=== PATIENT | female | born 1970 | race Caucasian/White ===

== ENCOUNTER 2020-01-09 11:42 | Inpatient (IN) | payer MEDICAID ==
[~2020-01-09] VITALS: Ht 154.9 cm; Wt 93.0 kg
[2020-01-09 12:00] VITALS: BP 115/65
--- NOTE | 2020-01-09 12:20 | NUR ---
C/O SUDDEN ONSET L SIDED CHEST PAIN/SOB STARTING TODAY AFTER BENDING OVER TO HELP A CLIENT PUT THEIR SHOE ON. PT STATES THE PAIN IS NON RADIATING, 6/10 & "TIGHT". DENIES N/V. PT IS A&OX4, ANSWERING QUESTIONS APPROPRIATELY. NO LABORED BREATHING/ACCESORY MUSCLE USE NOTED. 02 SAT RA 98%, LUNG SOUNDS CAEBL. SKIN WARM/DRY. BED IN LOW POSITION, SIDE RAIL UP X1. AT BEDSIDE.
--- NOTE | 2020-01-09 13:10 | NUR ---
ERMD AT BEDSIDE
[2020-01-09] MEDS ORDERED: NITROGLYCERIN 0.4 MG TAB SL ONE (13:25)
[2020-01-09] MEDS ORDERED: ASPIRIN 81 MG TAB.CHEW PO ONE (13:25)
[2020-01-09 13:49] LABS: BASOPHILS % (AUTO) 0.7 % (0.0-2.0); EOSINOPHILS # (AUTO) 0.1 K/uL (0-0.4); EOSINOPHILS % (AUTO) 1.4 % (0.0-4.0); HEMATOCRIT 41.9 % (36-48); HEMOGLOBIN 13.9 g/dL (12.0-16.0); LYMPHOCYTES % (AUTO) 32.3 % (20.5-51.1); MEAN CORPUSCULAR HEMOGLOBIN 31 pg (27-31); MEAN CORPUSCULAR HGB CONC 33 g/dL (33-37); MEAN CORPUSCULAR VOLUME 93.2 fL (80-94); MONOCYTES # (AUTO) 0.5 K/uL (0.8-1.0); MONOCYTES % (AUTO) 8.8 % (1.7-9.3); NEUTROPHILS # (AUTO) 3.6 K/uL (1.8-7.7); NEUTROPHILS % (AUTO) 56.8 % (42.2-75.2); PLATELET COUNT (AUTO) 253 K/uL (140-450); RED BLOOD CELL COUNT(AUTO) 4.49 MIL/uL (4.20-5.40); RED CELL DISTRIBUTION WIDTH 12.7 % (11.6-13.7); WHITE BLOOD COUNT (AUTO) 6.3 K/uL (4.8-10.8)
[2020-01-09 14:03] LABS: ALBUMIN 3.8 g/dL (3.4-5.0); ANION GAP 10.7 (8-16); CARBON DIOXIDE 29.2 mmol/L (21-32); CREATININE 0.8 mg/dL (0.6-1.3); POTASSIUM 3.9 mmol/L (3.5-5.1); TOTAL BILIRUBIN 0.7 mg/dL (0.0-1.0)
--- NOTE | 2020-01-09 14:10 | NUR ---
PT RESTING IN BED, NO NEW NEEDS AT THIS TIME. DENIES PAIN
--- NOTE | 2020-01-09 15:17 | NUR ---
PT RESTING IN BED, DENIES PAIN. OFFERED PT A SNACK AND SHE DECLINED STATING SHE WAS NOT HUNGRY
--- NOTE | 2020-01-09 15:20 | NUR ---
ERMD REEVALUATING PT
[2020-01-09] MEDS ORDERED: NACL 0.9% 1,000 ML IV SCH (15:23)
[2020-01-09] MEDS ORDERED: DOCUSATE SODIUM 100 MG GELCAP PO PRN (15:25)
[2020-01-09] MEDS ORDERED: HYDROcodone/APAP 5/325 MG 1 TAB TAB PO PRN (15:25)
[2020-01-09] MEDS ORDERED: ZOLPIDEM 5 MG TAB PO PRN (15:25)
[2020-01-09] MEDS ORDERED: ACETAMINOPHEN 325 MG TAB PO PRN (15:25)
[2020-01-09] MEDS ORDERED: LORazepam 2 MG/ML VIAL IM/IVP PRN (15:25)
[2020-01-09] MEDS ORDERED: ONDANSETRON 4 MG/2 ML VIAL IM/IVP PRN (15:25)
[2020-01-09] MEDS ORDERED: MORPHINE SULFATE 2 MG/ML SYR IVP PRN (15:25)
[2020-01-09] MEDS ORDERED: NITROGLYCERIN 0.4 MG TAB SL PRN (15:30)
[2020-01-09] MEDS ORDERED: MECLIZINE 25 MG TAB PO PRN (15:40)
[2020-01-09 16:08] LABS: PROTHROMBIN TIME 9.4 secs (10.8-13.4)
[2020-01-09 16:18] LABS: CHOL/HDL RATIO 4.4 (1-4.5); THYROID STIMULATING HORMONE 2.3 uIU/mL (0.34-3.74)
--- NOTE | 2020-01-09 17:00 | NUR ---
PT SITTING UP EATING DINNER IN BED
--- NOTE | 2020-01-09 17:50 | NUR ---
PATIENT ARRIVED ON MST UNIT FROM ER, PATIENT ABLE TO AMBULATE TO MST BED WITH STEADY GAIT. NO DISTRESS NOTED. DENIES ANY PAIN AT THIS TIME. AAOX4, CALM, COOPERATIVE, SKIN COLOR APPROPRIATE TO ETHNICITY, WARM TO TOUCH. SKIN INTACT. IV SITE INTACT, PATENT. ORIENTED PATIENT TO ROOM AND CALL LIGHT. REVIEWED PLAN OF CARE WITH PATIENT. PATIENT VERBALIZED UNDERSTANDING. SAFETY MEASURES IN PLACE, CALL LIGHT WITHIN REACH. WILL CONTINUE TO MONITOR.
--- NOTE | 2020-01-09 17:55 | NUR ---
Patient will be admitted to care of DR. SWANSON. Admited to TELEMETRY. Will go to room 105A. Belongings list completed. Report to AUGUST ARAYA.
[2020-01-09] MEDS: KETOROLAC 15 MG/ML VIAL IVP SCH (18:44)
--- NOTE | 2020-01-09 18:44 | NUR ---
SCHEDULED MEDICATIONS DUE GIVEN. WILL CONTINUE TO MONITOR.
--- NOTE | 2020-01-09 19:17 | NUR ---
GAVE REPORT TO PROPELLER MECHANIC NURSE FOR CONTINUITY OF CARE. PATIENT IN STABLE CONDTION.
--- NOTE | 2020-01-09 19:18 | NUR ---
RECEIVED REPORT FROM AM NURSE . PT NEW ADMISSION FROM ER. AWAKE,ALERT AND ORIENTED X4. TELE PT. WITH NO C/O OF ANY PAIN AT THIS TIME. IVF INFUSING WELL ON THE RT AC G#20. CLEAR AND PATENT. MRSA NARES SPECIMEN ALREADY [id number] BY AM NURSE , SENT TO LAB. . BED ON LOW POSITION, CALL LIGHT PLACED WITHIN REACH. WILL CONTINUE TO MONITOR AND FOLLOW UP ADMIT ORDERS.
[2020-01-09 19:40] VITALS: BP 101/49
[2020-01-09 20:30] VITALS: BP 98/56
[2020-01-09 20:32] VITALS: BP 103/69
[2020-01-09 20:33] VITALS: BP 115/64
[2020-01-09 20:38] LABS: APPEARANCE,URINE CLEAR (CLEAR); BILIRUBIN,URINE NEGATIVE (NEGATIVE); BLOOD, URINE NEGATIVE (NEGATIVE); COLOR,URINE YELLOW (YELLOW); LEUKOCYTE ESTERASE ,URINE NEGATIVE (NEGATIVE); NITRITE, URINE NEGATIVE (NEGATIVE); UGLUCOSE NEGATIVE (NEGATIVE)
[2020-01-09] MEDS: METOPROLOL 25 MG TAB PO SCH (20:40)
[2020-01-09 20:47] LABS: BARBITURATE, URINE NEGATIVE ng/ml (NEG <=200); BENZODIAZEPINE, URINE NEGATIVE ng/mL (NEG <=200); CANNABINOID, URINE NEGATIVE ng/mL (NEG <=50); COCAINE, URINE NEGATIVE ng/mL (NEG <=300); OPIATE, URINE NEGATIVE ng/mL (NEG <=2000); PHENCYCLIDINE SCREEN,URINE NEGATIVE ng/mL (NEG <=25)
[2020-01-09] MEDS ORDERED: ATORVASTATIN 20 MG TAB PO SCH (21:00)
--- NOTE | 2020-01-09 22:00 | NUR ---
MADE ROUNDS. PT AWAKE. NO C/O ANY CHEST PAIN NOTED. WILL CONTINUE TO MONITOR.
--- NOTE | 2020-01-10 00:19 | NUR ---
REFUSED TORADOL IVP DUE AT THIS TIME. SHE SAID SHE DOESN'T NEED, FOR SHE HAVE NO PAIN. DR. CORDERO,RESIDENT MADE AWARE.
[2020-01-10 00:20] VITALS: BP 97/46
--- NOTE | 2020-01-10 02:00 | NUR ---
MADE ROUNDS. PT ASLEEP. NO S/S OF ANY DISCOMFORT NOR PAIN NOTED.
[2020-01-10 03:45] VITALS: BP 106/43
--- NOTE | 2020-01-10 04:00 | NUR ---
PT VITAL SIGNS TAKEN. BP 106/43. NO C/O ANY DISCOMFORT NOR PAIN NOTED.
[2020-01-10] MEDS: KETOROLAC 15 MG/ML VIAL IVP SCH ×3 (06:00→12:00)
--- NOTE | 2020-01-10 06:30 | NUR ---
BLE SCD MACHINE APPLIED. PT MADE AWARE OF THE PURPOSE OD THE MACHINE.
[2020-01-10 06:42] LABS: BASOPHILS # (AUTO) 0.1 K/uL (0.00-0.22); BASOPHILS % (AUTO) 0.8 % (0.0-2.0); EOSINOPHILS # (AUTO) 0.1 K/uL (0-0.4); EOSINOPHILS % (AUTO) 1.4 % (0.0-4.0); HEMOGLOBIN 13.9 g/dL (12.0-16.0); LYMPHOCYTES # (AUTO) 1.9 K/uL (2.5-16.5); LYMPHOCYTES % (AUTO) 28.7 % (20.5-51.1); MEAN CORPUSCULAR HEMOGLOBIN 31 pg (27-31); MEAN CORPUSCULAR HGB CONC 33 g/dL (33-37); MEAN CORPUSCULAR VOLUME 93.3 fL (80-94); MONOCYTES # (AUTO) 0.6 K/uL (0.8-1.0); MONOCYTES % (AUTO) 9.6 % (1.7-9.3); NEUTROPHILS # (AUTO) 3.9 K/uL (1.8-7.7); NEUTROPHILS % (AUTO) 59.5 % (42.2-75.2); PLATELET COUNT (AUTO) 236 K/uL (140-450); WHITE BLOOD COUNT (AUTO) 6.5 K/uL (4.8-10.8)
--- NOTE | 2020-01-10 07:00 | NUR ---
RECEIVED PT. FROM MANAGER HEART FAILURE NURSELITO. PT. IS AWAKE AND IN BED. NO COMPLAINS OF PAIN AND NO SIGNS OF DISTRESS. IV ON THE RIGHT AC 20G WITH NS RUNNING AT 60ML/HR. AAOX4. ON TELEMETRY. HEART RATE REGULAR WITH S1&S2. LUNG SOUNDS CLEAR. CALL LIGHT WITHIN REACH. WILL CONTINUE TO MONITOR.
--- NOTE | 2020-01-10 07:00 | NUR ---
ENDORSED PT IN STABLE CONDITION TO AM NURSE.
[2020-01-10 07:12] LABS: ANION GAP 11.8 (8-16); CARBON DIOXIDE 26.6 mmol/L (21-32); CREATININE 0.8 mg/dL (0.6-1.3); POTASSIUM 4.4 mmol/L (3.5-5.1)
[2020-01-10 08:00] VITALS: BP 98/47
[2020-01-10 08:04] LABS: MAGNESIUM 2.1 mg/dL (1.8-2.4); PHOSPHORUS 3.2 mg/dL (2.5-4.9)
--- NOTE | 2020-01-10 08:20 | NUR ---
PATIENT HAS BEEN SCREENED AND CATEGORIZED MODERATE NUTRITION RISK. PATIENT WILL BE SEEN WITHIN 3-5 DAYS OF ADMISSION. 01/12/20 01/14/[address]
[2020-01-10] MEDS: METOPROLOL 25 MG TAB PO SCH (08:54)
--- NOTE | 2020-01-10 08:55 | NUR ---
MORNING MEDICATIONS GIVEN. METOPROLOL AND LISINOPRIL PO NOT GIVEN D/T BP OF 98/47 AND HR 68. PT IS NOT IN DISTRESS, VERBALIZES NO PAIN. WILL CONTINUE TO MONITOR.
[2020-01-10] MEDS ORDERED: ASPIRIN 81 MG TAB.CHEW PO SCH (09:00)
[2020-01-10] MEDS ORDERED: LISINOPRIL 5 MG TAB PO SCH (09:00)
[2020-01-10 10:39] VITALS: BP 98/47
[2020-01-10] MEDS ORDERED: INFLUENZA VACCINE QUAD 0.5 ML SYR IMVAC ONE (10:45)
[2020-01-10] MEDS ORDERED: PNEUMOCOCCAL VACCINE 23 MCG/0.5 ML VIAL IMVAC SCH (10:45)
[2020-01-10] MEDS ORDERED: IBUP-2213 PO (12:01)
== END 2020-01-10 12:29 | disposition home or self-care (01) | DRG 48 ==
LOC: MED 11:42 → MTU 17:23
PROVIDERS: ADMIT General Practice; ATTEND General Practice
PROC: 3E0234Z Introduction of Serum, Toxoid and Vaccine into Muscle, Percutaneous Approach (ICD-10-PCS; principal; 2020-01-10)
PROC: 3E02340 Introduction of Influenza Vaccine into Muscle, Percutaneous Approach (ICD-10-PCS; 2020-01-10)
DX: G90.8 Other disorders of autonomic nervous system (principal); E66.9 Obesity, unspecified; M94.0 Chondrocostal junction syndrome [Tietze]; E78.5 Hyperlipidemia, unspecified; Z68.38 Body mass index [BMI] 38.0-38.9, adult; Z23 Encounter for immunization
CPT/HCPCS: 36415; 70450; 71045; 80048; 80053; 80305; 81003; 83036; 83690; 83735; 83880; 84100; 84134; 84443; 84484; 84702; 85025; 85379; 85610; 85730; 87081; 90732; 93005; 99285; J1885; J7030; Q0092